=== PATIENT | female | born 1990 ===

== ENCOUNTER 2024-05-14 09:12 | Emergency (ER) | payer OTHER ==
[~2024-05-14] VITALS: Ht 149.9 cm; Wt 50.0 kg
[2024-05-14 09:16] VITALS: BP 120/81; PULSE 72; RESP 16; TEMP 98
[2024-05-14] MEDS ORDERED: SULF-261 PO (13:49)
[2024-05-14] MEDS ORDERED: PERCT PO (13:49)
[2024-05-14] MEDS ORDERED: CEPH-558 PO (13:49)
== END 2024-05-14 13:51 | disposition home or self-care (01) ==
LOC: EMS 09:12
DX: L02.31 Cutaneous abscess of buttock (principal)
CPT/HCPCS: 97597; 99283